=== PATIENT | male | born 1970 | race Caucasian/White ===

== ENCOUNTER → 2025-03-18 | Outpatient (REF) | payer BC ==
[~2025-03-18] MED LIST: ATEN50TA2 PO; BUPR-70 PO; FENO160T10 PO; LOSA100T46 PO; METF500T13 PO; PROT1TAB2 PO; TRIC145T22 PO
== END ==
LOC: M LAB REF 14:59
PROVIDERS: ATTEND Surgery
DX: L72.0 Epidermal cyst (principal)